=== PATIENT | female | born 1970 | race Caucasian/White ===

== ENCOUNTER 2021-08-18 16:01 | Day surgery (SDC) | payer MEDICARE ==
[2021-08-18] MEDS ORDERED: Xylocaine 1% Vial 30 ML PF IJ ONE (16:02)
[2021-08-18] MEDS ORDERED: Depo-Medrol 40 MG/ML IM ONE (16:02)
[2021-08-18] MEDS ORDERED: Sodium Chloride 0.9(Preservative Free) 10 ML IJ ONE (16:02)
[2021-08-18] MEDS ORDERED: Decadron 4 MG INJ IV ONE (16:02)
--- NOTE | 2021-08-18 20:37 | XRAY ---
Indication: Right piriformis injection. Intraoperative fluoroscopy provided for 41 seconds. Single digital spot image submitted for interpretation demonstrates posterior needle tip projecting over the expected right piriformis muscle. Small amount of contrast injected for needle tip placement. Correlate with intraoperative findings/report.
--- NOTE | 2021-08-18 20:47 | XRAY ---
Indication: Right L4-S1 transforaminal MISSY. Intraoperative fluoroscopy provided for 29 seconds. 4 digital spot image submitted for interpretation demonstrates posterior needle tips projecting over the expected right L4 and L5 nerve roots. Small amount of contrast injected for needle tip placement. Correlate with intraoperative findings/report.
--- NOTE | 2021-08-19 08:42 | XRAY ---
41 seconds fluoroscopy time in surgery for injection of the right piriformis muscle.
--- NOTE | 2021-08-19 08:51 | XRAY ---
29 seconds fluoroscopy time in surgery for right L4-S1 transforaminal MISSY.
== END 2021-08-18 18:58 | disposition home or self-care (01) ==
LOC: SDC-PAIN 16:01
PROVIDERS: ATTEND Psychiatry & Neurology Pain Medicine
DX: M54.16 Radiculopathy, lumbar region (principal); M79.18 Myalgia, other site; E11.9 Type 2 diabetes mellitus without complications; Z79.899 Other long term (current) drug therapy
CPT/HCPCS: 64483; 64484; 72020; 72100; 77002; 77003; 82947; 84703; J1030; J1100; J2001; Q9966

== ENCOUNTER 2021-10-13 14:45 | Day surgery (SDC) | payer MEDICARE ==
[2021-10-13] MEDS ORDERED: Depo-Medrol 40 MG/ML IM ONE (14:46)
[2021-10-13] MEDS ORDERED: Xylocaine 1% Vial 30 ML PF IJ ONE (14:46)
[2021-10-13] MEDS ORDERED: Sodium Chloride 0.9% 10 ML FLUSH Syringe IJ ONE (14:46)
--- NOTE | 2021-10-13 22:01 | XRAY ---
Indication: Right L3-L5 transforaminal MISSY. Intraoperative fluoroscopy provided for 24 seconds. 3 digital spot image submitted for interpretation demonstrates posterior needle tips projecting over the expected right L3 and L4 nerve roots. Small amount of contrast injected for needle tip placement. Correlate with intraoperative findings/report.
--- NOTE | 2021-10-14 09:13 | XRAY ---
24 seconds fluoroscopy time in surgery for right L3-L5 transforaminal MISSY.
== END 2021-10-13 18:00 | disposition home or self-care (01) ==
LOC: SDC-PAIN 14:45
PROVIDERS: ATTEND Psychiatry & Neurology Pain Medicine
DX: M54.16 Radiculopathy, lumbar region (principal); I10 Essential (primary) hypertension; E11.9 Type 2 diabetes mellitus without complications; Z79.899 Other long term (current) drug therapy
CPT/HCPCS: 64483; 64484; 72100; 77003; 82947; 84703; J1030; J2001; Q9966

== ENCOUNTER 2024-06-20 15:12 | Day surgery (SDC) | payer MEDICARE, BC ==
[2024-06-20] MEDS ORDERED: LIDOCAINE HCL 1% 50 MG/5 ML VL PF IJ ONE (15:13)
[2024-06-20] MEDS ORDERED: Decadron 4 MG INJ IV ONE (15:13)
[2024-06-20] MEDS ORDERED: Sodium Chloride 0.9(Preservative Free) 10 ML IJ ONE (15:13)
[2024-06-20] MEDS ORDERED: Lactated Ringers 1,000 ML IV ONE (16:33)
--- NOTE | 2024-06-20 16:47 | XRAY ---
Indication: Right L3-L5 transforaminal MISSY. Intraoperative fluoroscopy provided for 38 seconds. 7 digital spot image demonstrates posterior needle tips projecting over the expected right L3 nerve root. Small amount of contrast injected for needle tip placement with additional contrast lateral to right L4. Correlate with intraoperative findings/report.
--- NOTE | 2024-06-21 10:36 | XRAY ---
38 seconds of fluoroscopy were used in surgery for a right L3-L5 transforaminal MISSY.
== END 2024-06-20 16:38 ==
LOC: SDC-PAIN 15:12
PROVIDERS: ATTEND Psychiatry & Neurology Pain Medicine
DX: M54.16 Radiculopathy, lumbar region (principal); E11.9 Type 2 diabetes mellitus without complications
CPT/HCPCS: 64483; 64484; 72100; 77003; 82947; J1100; J2001; Q9966